=== PATIENT | male | born 1980 | race Caucasian/White ===

== ENCOUNTER 2024-07-15 06:23 | Inpatient (IN) | payer BC ==
[2024-07-15] MEDS ORDERED: Dexamethasone 4 mg/ml Vial ONE (06:56)
[2024-07-15] MEDS ORDERED: PROPOFOL 40 ML ONE (06:56)
[2024-07-15] MEDS ORDERED: Lidocaine 1% PF 5 ML VIAL ONE (06:56)
[2024-07-15] MEDS ORDERED: Ondansetron PF 4 MG/2 ML Vial ONE (06:56)
[2024-07-15] MEDS ORDERED: fentaNYL PF 100 MCG/2 ML SYRINGE ONE (06:56)
[2024-07-15] MEDS ORDERED: Rocuronium Bromide 10 MG/ML (10ML VIAL) ONE (06:59)
[2024-07-15] MEDS ORDERED: Sodium Chloride 0.9% 100 ML ONE ×2 (07:09→16:36)
[2024-07-15] MEDS ORDERED: CEFAZOLIN 2 GM VIAL ONE ×2 (07:09→16:36)
[2024-07-15] MEDS ORDERED: Scopolamine 1 mg/72 hour Patch ONE (07:18)
[2024-07-15] MEDS ORDERED: Midazolam HCl 2 mg/2 ml Vial ONE ×2 (07:18→13:35)
[2024-07-15] MEDS ORDERED: Famotidine/PF 20 mg/2ml Vial ONE ×2 (07:27→09:04)
[2024-07-15] MEDS ORDERED: Metoclopramide HCl 10 MG (2 mL) VIAL ONE (07:43)
[2024-07-15] MEDS ORDERED: HYDROmorphone 2 MG/ML VIAL ONE (08:08)
[2024-07-15] MEDS ORDERED: Dexmedetomidine 200 MCG/2 ML VIAL ONE (08:20)
[2024-07-15] MEDS ORDERED: SUGAMMADEX SODIUM 200 MG/2 ML VIAL ONE (08:58)
[2024-07-15] MEDS ORDERED: PHENYLEPHRINE-NS 100 MCG/ML 10 ML SYRINGE ONE (09:05)
[2024-07-15] MEDS ORDERED: Ondansetron PF 4 MG/2 ML Vial SLOW IVP PRN (10:04)
[2024-07-15] MEDS ORDERED: Communication Order-Pharmacy FS SCH (10:15)
[2024-07-15] MEDS ORDERED: Fentanyl 250 MCG/5 ML VIAL ONE (10:19)
[2024-07-15] MEDS ORDERED: HYDROmorphone 0.5 MG/0.5 ML SYRINGE ONE ×4 (11:24→15:11)
[2024-07-15] MEDS ORDERED: Iopamidol-370 76% 500 ML MDV (1 ML CHARGE) ONE (14:21)
[2024-07-15 14:48] LABS: #Basophils 0.06 10x3/uL (0.0-0.2); #Eosinphils Less than 0.03 10x3/uL (0.0-0.7); %Basophils 0.4 % (0.0-1.0); %Eosinophils 0.1 % (0.0-10.0); %Lymphocytes 5.5 % (21.0-51.0); %Monocytes 6.7 % (0.0-10.0); %Neutrophils 86.9 % (42.0-75.0); Hematocrit 35.6 % (42.0-52.0); Hemoglobin 11.5 g/dL (14.0-18.0); Mean Corpuscular HGB CONC 32.3 g/dL (32.0-36.0); Mean Corpuscular Hemoglobin 29.6 pg (27.0-31.0); Mean Corpuscular Volume 91.5 fL (78.0-98.0); Mean Platelet Volume 10.5 fL (7.4-10.4); Platelet Count 426 10x3/uL (130-400); RBC Distribution Width 12.9 % (11.5-14.5); Red Blood Cell (RBC) Count 3.89 mill/uL (4.70-6.10)
[2024-07-15 15:05] LABS: ALT (SGPT) 63 U/L (8-55); AST (SGOT) 49 U/L (5-34); Albumin 3.6 g/dL (3.5-5.0); Alkaline Phosphatase 183 U/L (40-110); Anion Gap 16 mmol/L (10-20); BUN (Urea Nitrogen) 15 mg/dL (8.9-20.6); Bilirubin, Total 0.4 mg/dL (0.2-1.2); Calc. Creatinine Clearance 162 mL/min (70-130); Calcium 9.7 mg/dL (7.8-10.44); Carbon Dioxide 23 mmol/L (22-29); Chloride 105 mmol/L (98-107); Estimated GFR 110; Globulin 3.3 g/dL (2.4-3.5); Glucose 133 mg/dL (70-105); Potassium 5.4 mmol/L (3.5-5.1); Protein, Total 6.9 g/dL (6.0-8.3); Sodium 139 mmol/L (136-145)
[2024-07-15 15:11] LABS: Troponin I 0.013 ng/mL (< 0.028)
[2024-07-15] MEDS ORDERED: Dextrose 50% Abboject 50 ML SYRINGE SLOW IVP PRN (15:30)
[2024-07-15] MEDS ORDERED: HumuLIN 70/30 100 Unit/ml 10 ml Vial SC SCH (15:45)
[2024-07-15] MEDS ORDERED: Dextrose 50% Abboject 50 ML SYRINGE ONE (16:03)
[2024-07-15] MEDS ORDERED: Insulin Regular, Human 100 UNIT/ML 10 ML VIAL ONE (16:19)
[2024-07-15] MEDS ORDERED: HYDROcodone/Acetaminophen 10/325 mg Tablet ONE (16:56)
[2024-07-15] MEDS: CEFAZOLIN 2 GM in Sodium Chloride 0.9% 100 ML IVPB SCH (18:21)
[2024-07-15] MEDS: Sodium Chloride 0.9% 1,000 ML IV SCH ×2 (18:21→18:27)
[2024-07-15] MEDS: Thiamine 100 MG TAB PO SCH (18:21)
[2024-07-15] MEDS: Folic Acid 1 MG TAB PO SCH (18:21)
[2024-07-15] MEDS: Multivit, Therapeutic 1 TAB PO SCH (18:21)
[2024-07-15] MEDS: Sodium Polystyrene Sulfonate 15 GM (60 mL) BOT PO SCH (18:22)
[2024-07-15] MEDS: Insulin Regular, Human 100 UNIT/ML 10 ML VIAL SC SCH (18:22)
[2024-07-15 19:41] LABS: Troponin I 0.013 ng/mL (< 0.028)
[2024-07-15] MEDS: HYDROcodone/Acetaminophen 10/325 mg Tablet PO PRN (20:57)
[2024-07-15] MEDS: Metoprolol Tartrate 25 MG TAB PO SCH (20:57)
[2024-07-15] MEDS: traZODone HCl 50 MG TAB PO SCH (20:57)
[2024-07-15] MEDS ORDERED: Aspirin 325 MG TAB PO SCH (21:00)
[2024-07-16 06:23] LABS: #Basophils 0.06 10x3/uL (0.0-0.2); %Basophils 0.6 % (0.0-1.0); %Eosinophils 0.7 % (0.0-10.0); %Lymphocytes 20.6 % (21.0-51.0); %Monocytes 13.6 % (0.0-10.0); %Neutrophils 64.2 % (42.0-75.0); Hematocrit 31.2 % (42.0-52.0); Hemoglobin 9.9 g/dL (14.0-18.0); Mean Corpuscular HGB CONC 31.7 g/dL (32.0-36.0); Mean Corpuscular Hemoglobin 29.5 pg (27.0-31.0); Mean Corpuscular Volume 92.9 fL (78.0-98.0); Mean Platelet Volume 10.6 fL (7.4-10.4); Platelet Count 328 10x3/uL (130-400); RBC Distribution Width 13.1 % (11.5-14.5); Red Blood Cell (RBC) Count 3.36 mill/uL (4.70-6.10)
[2024-07-16 06:35] LABS: Amphetamine Not Detected (NotDetected); Barbiturates Screen Not Detected (NotDetected); Benzodiazepine Screen Not Detected (NotDetected); Cocaine Metabolite Screen Not Detected (NotDetected); Methadone Not Detected (NotDetected); Methamphetamine Not Detected (NotDetected); Opiate Screen Detected (NotDetected); Oxycodone Screen Not Detected (NotDetected); Phencyclidine (PCP) Not Detected (NotDetected); THC/Cannabinoid Screen Not Detected (NotDetected); Tricyclic Screen Not Detected (NotDetected)
[2024-07-16 07:42] LABS: Triglycerides 180 mg/dL (Less than 150)
[2024-07-16 07:46] LABS: Cholesterol 166 mg/dl (< 200 Desired)
[2024-07-16 07:47] LABS: Cardiac Risk 4.6 (Less than 4.5); HDL Cholesterol 36 mg/dL (>60 Neg Risk); LDL Cholesterol, Calculated 94 mg/dL
[2024-07-16 08:00] LABS: Anion Gap 14 mmol/L (10-20); BUN (Urea Nitrogen) 11 mg/dL (8.9-20.6); Calc. Creatinine Clearance 187 mL/min (70-130); Carbon Dioxide 24 mmol/L (22-29); Chloride 104 mmol/L (98-107); Estimated GFR 116; Glucose 128 mg/dL (70-105); Potassium 3.9 mmol/L (3.5-5.1); Sodium 138 mmol/L (136-145)
[2024-07-16] MEDS ORDERED: traMADol HCl 50 MG TAB PO PRN (10:11)
[2024-07-16] MEDS: Thiamine 100 MG TAB PO SCH (10:16)
[2024-07-16] MEDS: Folic Acid 1 MG TAB PO SCH (10:16)
[2024-07-16] MEDS: Multivitamin W/ Minerals 1 TAB PO SCH (10:16)
[2024-07-16] MEDS: Enoxaparin 40 MG (0.4 mL) SYRINGE SC SCH (10:17)
[2024-07-16] MEDS ORDERED: Bupivacaine HCl 0.5%/Epinephrine 1:200,000/PF 30 ml Vial ONE (11:02)
[2024-07-16] MEDS: Acetaminophen 325 MG TAB PO SCH (12:29)
[2024-07-16] MEDS: Ketorolac Tromethamine 30 MG (1 mL) VIAL IVP SCH (12:30)
[2024-07-16] MEDS: tiZANidine HCl 4 MG TAB PO SCH (20:25)
[2024-07-16] MEDS: Lactated Ringer's 500 ML IV SCH (21:58)
[2024-07-16 22:12] LABS: Lactic Acid 0.87 mmol/L (0.5-2.2)
[2024-07-16 22:31] LABS: Hematocrit 22.6 % (42.0-52.0); Hemoglobin 7.1 g/dL (14.0-18.0); Mean Corpuscular HGB CONC 31.4 g/dL (32.0-36.0); Mean Corpuscular Hemoglobin 29.7 pg (27.0-31.0); Mean Corpuscular Volume 94.6 fL (78.0-98.0); Mean Platelet Volume 10.6 fL (7.4-10.4); Platelet Count 255 10x3/uL (130-400); RBC Distribution Width 13.1 % (11.5-14.5); Red Blood Cell (RBC) Count 2.39 mill/uL (4.70-6.10)
[2024-07-17 07:52] LABS: Hematocrit 24.5 % (42.0-52.0); Hemoglobin 7.9 g/dL (14.0-18.0); Mean Corpuscular HGB CONC 32.2 g/dL (32.0-36.0); Mean Corpuscular Hemoglobin 29.9 pg (27.0-31.0); Mean Corpuscular Volume 92.8 fL (78.0-98.0); Mean Platelet Volume 10.7 fL (7.4-10.4); Platelet Count 251 10x3/uL (130-400); RBC Distribution Width 13.1 % (11.5-14.5); Red Blood Cell (RBC) Count 2.64 mill/uL (4.70-6.10)
[2024-07-17] MEDS: HYDROcodone/Acetaminophen 10/325 mg Tablet PO PRN (08:53)
[2024-07-17] MEDS: traMADol HCl 50 MG TAB PO SCH (13:27)
[2024-07-18 10:31] LABS: #Basophils 0.05 10x3/uL (0.0-0.2); %Basophils 0.6 % (0.0-1.0); %Eosinophils 5.6 % (0.0-10.0); %Lymphocytes 24.8 % (21.0-51.0); %Monocytes 9.3 % (0.0-10.0); %Neutrophils 59.2 % (42.0-75.0); Hematocrit 26.4 % (42.0-52.0); Hemoglobin 8.5 g/dL (14.0-18.0); Mean Corpuscular HGB CONC 32.2 g/dL (32.0-36.0); Mean Corpuscular Hemoglobin 29.5 pg (27.0-31.0); Mean Corpuscular Volume 91.7 fL (78.0-98.0); Mean Platelet Volume 10.6 fL (7.4-10.4); Platelet Count 266 10x3/uL (130-400); RBC Distribution Width 13.5 % (11.5-14.5); Red Blood Cell (RBC) Count 2.88 mill/uL (4.70-6.10)
[2024-07-18] MEDS: CEFAZOLIN 2 GM VIAL ONE (15:35)
[2024-07-19 08:17] LABS: #Basophils 0.05 10x3/uL (0.0-0.2); %Basophils 0.6 % (0.0-1.0); %Eosinophils 5.1 % (0.0-10.0); %Lymphocytes 24.5 % (21.0-51.0); %Monocytes 8.4 % (0.0-10.0); %Neutrophils 60.9 % (42.0-75.0); Hematocrit 29.2 % (42.0-52.0); Hemoglobin 9.4 g/dL (14.0-18.0); Mean Corpuscular HGB CONC 32.2 g/dL (32.0-36.0); Mean Corpuscular Hemoglobin 29.6 pg (27.0-31.0); Mean Corpuscular Volume 91.8 fL (78.0-98.0); Mean Platelet Volume 10.6 fL (7.4-10.4); Platelet Count 323 10x3/uL (130-400); RBC Distribution Width 13.1 % (11.5-14.5); Red Blood Cell (RBC) Count 3.18 mill/uL (4.70-6.10)
[2024-07-22 06:27] VITALS: BMI 30.2
[2024-07-22 13:51] VITALS: BP 91/59; TEMP 97.7
[2024-07-22 16:42] VITALS: BMI 30.2
== END 2024-07-22 21:07 | DRG 481 ==
LOC: SDC 06:23 → IMCU/EMU 14:42 → SURG B 07-17 19:18
PROVIDERS: ADMIT Orthopaedic Surgery; ATTEND Orthopaedic Surgery
PROC: 0QSG06Z Reposition Right Tibia with Intramedullary Internal Fixation Device, Open Approach (ICD-10-PCS; principal; 2024-07-15)
PROC: 0QU807Z Supplement Right Femoral Shaft with Autologous Tissue Substitute, Open Approach (ICD-10-PCS; 2024-07-15)
PROC: 0QBG0ZZ Excision of Right Tibia, Open Approach (ICD-10-PCS; 2024-07-15)
PROC: 3E033XZ Introduction of Vasopressor into Peripheral Vein, Percutaneous Approach (ICD-10-PCS; 2024-07-15)
PROC: 30233N1 Transfusion of Nonautologous Red Blood Cells into Peripheral Vein, Percutaneous Approach (ICD-10-PCS; 2024-07-17)
DX: S72.91XD Unspecified fracture of right femur, subsequent encounter for closed fracture with routine healing (principal); M96.671 Fracture of tibia or fibula following insertion of orthopedic implant, joint prosthesis, or bone plate, right leg; E87.5 Hyperkalemia; G47.33 Obstructive sleep apnea (adult) (pediatric); R74.01 Elevation of levels of liver transaminase levels; F17.200 Nicotine dependence, unspecified, uncomplicated; F10.10 Alcohol abuse, uncomplicated; D64.9 Anemia, unspecified; Z79.899 Other long term (current) drug therapy; Z88.8 Allergy status to other drugs, medicaments and biological substances; Z88.5 Allergy status to narcotic agent; Z90.49 Acquired absence of other specified parts of digestive tract; I95.9 Hypotension, unspecified
CPT/HCPCS: 36415; 36416; 36430; 71045; 71275; 80048; 80053; 80061; 80306; 83605; 83880; 84484; 85025; 85027; 86850; 86900; 86901; 93005; 93010; 93306; C1713; C1889; J1100; J1170; J1650; J1815; J1885; J2250; J2405; J2704; J2765; J3010; J3490; J7030; J7120; J7999; P9016; Q9967

== ENCOUNTER 2024-10-20 08:09 | Outpatient (CLI) | payer BC | END 2024-10-20 08:10 | disposition home or self-care (01) | LOC: BICRAD 08:09 | PROVIDERS: ATTEND Orthopaedic Surgery | DX: S42.022D Displaced fracture of shaft of left clavicle, subsequent encounter for fracture with routine healing (principal); S72.361D Displaced segmental fracture of shaft of right femur, subsequent encounter for closed fracture with routine healing; S72.492B Other fracture of lower end of left femur, initial encounter for open fracture type I or II; S72.452A Displaced supracondylar fracture without intracondylar extension of lower end of left femur, initial encounter for closed fracture; Z98.890 Other specified postprocedural states ==

== ENCOUNTER 2025-06-28 10:12 | Outpatient (CLI) | payer BC | END 2025-06-28 10:13 | disposition home or self-care (01) | LOC: BICRAD 10:12 | PROVIDERS: ATTEND Orthopaedic Surgery | DX: S72.492B Other fracture of lower end of left femur, initial encounter for open fracture type I or II (principal); S79.101D Unspecified physeal fracture of lower end of right femur, subsequent encounter for fracture with routine healing ==

== ENCOUNTER 2025-08-23 10:10 | Inpatient (IN) | payer BC ==
[2025-08-23] MEDS ORDERED: Iopamidol 370 76% 100 ML VIAL ONE (11:03)
[2025-08-23] MEDS ORDERED: Rocuronium Bromide 10 MG/ML (10ML VIAL) ONE (11:51)
[2025-08-23] MEDS ORDERED: fentaNYL PF 100 MCG/2 ML SYRINGE ONE (11:51)
[2025-08-23] MEDS ORDERED: Lidocaine 1% PF 5 ML VIAL ONE (11:51)
[2025-08-23] MEDS ORDERED: CEFAZOLIN 2 GM VIAL ONE (12:29)
[2025-08-23] MEDS ORDERED: Acetaminophen 325 MG TAB PO PRN (12:30)
[2025-08-23] MEDS ORDERED: PROPOFOL 200 MG/20 ML VIAL ONE (12:40)
[2025-08-23] MEDS ORDERED: Ondansetron PF 4 MG/2 ML Vial ONE (13:10)
[2025-08-23] MEDS ORDERED: HYDROmorphone 2 MG/ML VIAL ONE (13:51)
[2025-08-23 15:07] LABS: Hematocrit 47.4 % (42.0-52.0); Hemoglobin 15.8 g/dL (14.0-18.0)
[2025-08-23] MEDS ORDERED: SUGAMMADEX SODIUM 200 MG/2 ML VIAL ONE (15:18)
[2025-08-23] MEDS ORDERED: Bupivacaine 0.25% HCL 30 ML VIAL ONE ×3 (15:34→15:39)
[2025-08-23] MEDS ORDERED: HYDROmorphone 0.5 MG/0.5 ML SYRINGE ONE (16:43)
[2025-08-23 17:50] LABS: RBC Count-Automated (BF) 9673 /cu.mm
[2025-08-23 18:51] LABS: WBC/Nucleated-Auto (BF) Greater than 51000 /cu.mm
[2025-08-23 19:20] LABS: BF Segmented Neutrophils 92 %; Cell Count Non Hematic 2 %
[2025-08-23] MEDS: HYDROcodone/Acetaminophen 10/325 mg Tablet PO PRN (21:14)
[2025-08-23] MEDS: Nitroglycerin 0.4 MG TAB (25 Tab Bottle) ONE (22:10)
[2025-08-23] MEDS ORDERED: Nitroglycerin 0.4 MG TAB (25 Tab Bottle) SL PRN (22:12)
[2025-08-23 22:13] LABS: #Basophils 0.04 10x3/uL (0.0-0.2); #Eosinophils Less than 0.03 10x3/uL (0.0-0.7); #Monocytes 1.19 10x3/uL (0.11-0.59); #Neutrophils 20.31 10x3/uL (1.40-6.50); %Basophils 0.2 % (0.0-1.0); %Eosinophils 0.0 % (0.0-10.0); %Lymphocytes 3.0 % (21.0-51.0); %Monocytes 5.3 % (0.0-10.0); %Neutrophils 90.9 % (42.0-75.0); Hematocrit 48.3 % (42.0-52.0); Hemoglobin 16.1 g/dL (14.0-18.0); Mean Corpuscular Hemoglobin 29.8 pg (27.0-31.0); Mean Corpuscular Volume 89.3 fL (78.0-98.0); Platelet Count 305 10x3/uL (130-400); Red Blood Cell (RBC) Count 5.41 mill/uL (4.70-6.10); White Blood Cell (WBC) Count 22.35 10x3/uL (4.8-10.8)
[2025-08-23] MEDS ORDERED: Heparin 10,000 UNITS/ 10 ML VIAL SLOW IVP SCH (22:15)
[2025-08-23] MEDS: Metoprolol Tartrate 5 MG (5 mL) VIAL ONE (22:18)
[2025-08-23] MEDS: Heparin 10,000 UNITS/ 10 ML VIAL SLOW IVP SCH (22:25)
[2025-08-23 22:31] LABS: Anion Gap 15 mmol/L (10-20); BUN (Urea Nitrogen) 14 mg/dL (8.9-20.6); Calc. Creatinine Clearance 107 mL/min (70-130); Calcium 8.6 mg/dL (7.8-10.44); Chloride 103 mmol/L (98-107); Glucose 182 mg/dL (70-105); Potassium 5.0 mmol/L (3.5-5.1); Sodium 137 mmol/L (136-145)
[2025-08-23] MEDS ORDERED: Heparin 10,000 UNITS/ 10 ML VIAL ONE (22:39)
[2025-08-23] MEDS ORDERED: Nitroglycerin 50 MG/250 ML BOT 250 ML ONE (22:39)
[2025-08-23] MEDS ORDERED: EPINEPHrine 1 MG/10 ML Abboject SYRINGE ONE (22:39)
[2025-08-23] MEDS ORDERED: Lidocaine 1% (PF) 30 ML VIAL ONE (22:39)
[2025-08-23] MEDS ORDERED: PHENYLEPHRINE-NS 100 MCG/ML 10 ML SYRINGE ONE (22:39)
[2025-08-23 22:40] LABS: Carbon Dioxide 24 mmol/L (22-29)
[2025-08-23 22:43] LABS: INR-International Normal Ratio 1.0; Prothrombin Time 13.2 sec (12.0-14.7)
[2025-08-23 22:44] LABS: PTT 26.2 sec (22.9-36.1)
[2025-08-23] MEDS: Aspirin 81 mg Enteric Coated Tablet ONE (22:56)
[2025-08-23 23:38] LABS: Magnesium 1.8 mg/dL (1.6-2.6)
[2025-08-24] MEDS ORDERED: Metoprolol Tartrate 5 MG (5 mL) VIAL ONE (00:17)
[2025-08-24] MEDS: Mag-Al 1200 mg/1200 mg/30 ML UDCUP PO PRN (02:20)
[2025-08-24] MEDS: Ondansetron PF 4 MG/2 ML Vial SLOW IVP PRN (02:20)
[2025-08-24 04:43] LABS: #Basophils 0.04 10x3/uL (0.0-0.2); #Eosinophils Less than 0.03 10x3/uL (0.0-0.7); #Monocytes 1.76 10x3/uL (0.11-0.59); #Neutrophils 15.75 10x3/uL (1.40-6.50); %Basophils 0.2 % (0.0-1.0); %Eosinophils 0.0 % (0.0-10.0); %Lymphocytes 6.4 % (21.0-51.0); %Monocytes 9.3 % (0.0-10.0); %Neutrophils 83.6 % (42.0-75.0); Hematocrit 44.4 % (42.0-52.0); Hemoglobin 14.6 g/dL (14.0-18.0); Mean Corpuscular Hemoglobin 29.3 pg (27.0-31.0); Mean Corpuscular Volume 89.0 fL (78.0-98.0); Platelet Count 296 10x3/uL (130-400); Red Blood Cell (RBC) Count 4.99 mill/uL (4.70-6.10); White Blood Cell (WBC) Count 18.85 10x3/uL (4.8-10.8)
[2025-08-24 05:00] LABS: Anion Gap 16 mmol/L (10-20); BUN (Urea Nitrogen) 12 mg/dL (8.9-20.6); Calc. Creatinine Clearance 148 mL/min (70-130); Calcium 8.3 mg/dL (7.8-10.44); Carbon Dioxide 22 mmol/L (22-29); Cardiac Risk 5.0 (Less than 4.5); Chloride 104 mmol/L (98-107); Cholesterol 165 mg/dl (< 200 Desired); Glucose 146 mg/dL (70-105); HDL Cholesterol 33 mg/dL (>60 Neg Risk); LDL Cholesterol, Calculated 92 mg/dL; Potassium 4.6 mmol/L (3.5-5.1); Sodium 137 mmol/L (136-145); Triglycerides 202 mg/dL (Less than 150)
[2025-08-24] MEDS: Aspirin 81 mg Enteric Coated Tablet PO SCH (08:44)
[2025-08-24] MEDS: Pantoprazole 40 MG VIAL IVP SCH (10:12)
[2025-08-24] MEDS: Lisinopril 2.5 MG TAB PO SCH (10:19)
[2025-08-24] MEDS: Adenosine 6 mg (2 mL) VIAL IVP SCH ×2 (11:29→11:31)
[2025-08-24] MEDS: Amiodarone 150 MG, Admixture Fee 1 EACH in Dextrose 5% in Water 100 ML IVPB SCH (12:11)
[2025-08-24] MEDS: Enoxaparin 100 MG (1 mL) SYRINGE SC SCH (13:54)
[2025-08-25 04:11] LABS: ALT (SGPT) 37 U/L (Less than 45); AST (SGOT) 110 U/L (11-34); Albumin 3.3 g/dL (3.1-4.5); Alkaline Phosphatase 56 U/L (40-110); Anion Gap 14 mmol/L (10-20); BUN (Urea Nitrogen) 15 mg/dL (8.9-20.6); Bilirubin, Total 0.7 mg/dL (0.3-1.2); Calc. Creatinine Clearance 128 mL/min (70-130); Calcium 8.1 mg/dL (7.8-10.44); Carbon Dioxide 27 mmol/L (22-29); Cardiac Risk 4.2 (Less than 4.5); Chloride 101 mmol/L (98-107); Cholesterol 142 mg/dl (< 200 Desired); Globulin 2.4 g/dL (2.4-3.5); Glucose 128 mg/dL (70-105); HDL Cholesterol 34 mg/dL (>60 Neg Risk); LDL Cholesterol, Calculated 66 mg/dL; Potassium 4.7 mmol/L (3.5-5.1); Sodium 137 mmol/L (136-145); Triglycerides 211 mg/dL (Less than 150)
[2025-08-25 06:15] LABS: #Basophils 0.05 10x3/uL (0.0-0.2); #Eosinophils Less than 0.03 10x3/uL (0.0-0.7); #Monocytes 2.48 10x3/uL (0.11-0.59); #Neutrophils 15.30 10x3/uL (1.40-6.50); %Basophils 0.2 % (0.0-1.0); %Eosinophils 0.0 % (0.0-10.0); %Lymphocytes 10.2 % (21.0-51.0); %Monocytes 12.4 % (0.0-10.0); %Neutrophils 76.5 % (42.0-75.0); Hematocrit 32.7 % (42.0-52.0); Hemoglobin 10.5 g/dL (14.0-18.0); Mean Corpuscular Hemoglobin 29.1 pg (27.0-31.0); Mean Corpuscular Volume 90.6 fL (78.0-98.0); Platelet Count 232 10x3/uL (130-400); Red Blood Cell (RBC) Count 3.61 mill/uL (4.70-6.10); White Blood Cell (WBC) Count 20.03 10x3/uL (4.8-10.8)
[2025-08-25] MEDS: Aspirin 81 mg Enteric Coated Tablet PO SCH (08:14)
[2025-08-25] MEDS ORDERED: Ondansetron PF 4 MG/2 ML Vial IVP PRN (10:45)
[2025-08-25] MEDS ORDERED: diphenhydrAMINE 50 MG/ML VIAL IM/IV PRN (10:45)
[2025-08-25] MEDS: Dapagliflozin Propanediol 10 MG TAB PO SCH (11:09)
[2025-08-25] MEDS: HYDROmorphone HCl/0.9% NaCl/PF 30 ML IV SCH (11:09)
[2025-08-25] MEDS: Ketorolac Tromethamine 30 MG (1 mL) VIAL IVP SCH (11:09)
[2025-08-25] MEDS: Acetaminophen 500 MG TAB PO SCH (11:09)
[2025-08-25 12:50] LABS: #Basophils 0.06 10x3/uL (0.0-0.2); #Eosinophils Less than 0.03 10x3/uL (0.0-0.7); #Monocytes 2.48 10x3/uL (0.11-0.59); #Neutrophils 15.88 10x3/uL (1.40-6.50); %Basophils 0.3 % (0.0-1.0); %Eosinophils 0.0 % (0.0-10.0); %Lymphocytes 9.1 % (21.0-51.0); %Monocytes 12.1 % (0.0-10.0); %Neutrophils 77.7 % (42.0-75.0); Hematocrit 30.0 % (42.0-52.0); Hemoglobin 9.8 g/dL (14.0-18.0); Mean Corpuscular Hemoglobin 29.7 pg (27.0-31.0); Mean Corpuscular Volume 90.9 fL (78.0-98.0); Platelet Count 241 10x3/uL (130-400); Red Blood Cell (RBC) Count 3.30 mill/uL (4.70-6.10); White Blood Cell (WBC) Count 20.45 10x3/uL (4.8-10.8)
[2025-08-25 19:56] LABS: #Basophils 0.06 10x3/uL (0.0-0.2); #Eosinophils Less than 0.03 10x3/uL (0.0-0.7); #Monocytes 2.20 10x3/uL (0.11-0.59); #Neutrophils 16.59 10x3/uL (1.40-6.50); %Basophils 0.3 % (0.0-1.0); %Eosinophils 0.0 % (0.0-10.0); %Lymphocytes 9.4 % (21.0-51.0); %Monocytes 10.5 % (0.0-10.0); %Neutrophils 78.8 % (42.0-75.0); Hematocrit 29.2 % (42.0-52.0); Hemoglobin 9.5 g/dL (14.0-18.0); Mean Corpuscular Hemoglobin 29.5 pg (27.0-31.0); Mean Corpuscular Volume 90.7 fL (78.0-98.0); Platelet Count 229 10x3/uL (130-400); Red Blood Cell (RBC) Count 3.22 mill/uL (4.70-6.10); White Blood Cell (WBC) Count 21.04 10x3/uL (4.8-10.8)
[2025-08-25] MEDS: Pantoprazole 40 MG DR.TAB PO SCH (20:10)
[2025-08-26 03:27] LABS: #Basophils 0.05 10x3/uL (0.0-0.2); #Eosinophils Less than 0.03 10x3/uL (0.0-0.7); #Monocytes 1.75 10x3/uL (0.11-0.59); #Neutrophils 14.49 10x3/uL (1.40-6.50); %Basophils 0.3 % (0.0-1.0); %Eosinophils 0.1 % (0.0-10.0); %Lymphocytes 10.2 % (21.0-51.0); %Monocytes 9.6 % (0.0-10.0); %Neutrophils 79.0 % (42.0-75.0); Hematocrit 29.3 % (42.0-52.0); Hemoglobin 9.4 g/dL (14.0-18.0); Mean Corpuscular Hemoglobin 29.1 pg (27.0-31.0); Mean Corpuscular Volume 90.7 fL (78.0-98.0); Platelet Count 188 10x3/uL (130-400); Red Blood Cell (RBC) Count 3.23 mill/uL (4.70-6.10); White Blood Cell (WBC) Count 18.31 10x3/uL (4.8-10.8)
[2025-08-26 03:52] LABS: Anion Gap 10 mmol/L (10-20); BUN (Urea Nitrogen) 17 mg/dL (8.9-20.6); Calc. Creatinine Clearance 152 mL/min (70-130); Calcium 7.9 mg/dL (7.8-10.44); Carbon Dioxide 29 mmol/L (22-29); Chloride 101 mmol/L (98-107); Glucose 117 mg/dL (70-105); Potassium 4.6 mmol/L (3.5-5.1); Sodium 135 mmol/L (136-145)
[2025-08-26] MEDS: Dapagliflozin Propanediol 10 MG TAB PO SCH (07:43)
[2025-08-26] MEDS ORDERED: Enoxaparin 40 MG (0.4 mL) SYRINGE SC SCH (09:00)
[2025-08-26] MEDS ORDERED: Iopamidol 370 76% 100 ML VIAL ONE (13:53)
[2025-08-26 16:02] LABS: Hemoglobin 9.4 g/dL (14.0-18.0)
[2025-08-26 16:22] LABS: INR-International Normal Ratio 1.1; PTT 34.9 sec (22.9-36.1); Prothrombin Time 14.3 sec (12.0-14.7)
[2025-08-27 04:15] LABS: #Basophils 0.05 10x3/uL (0.0-0.2); #Eosinophils 0.12 10x3/uL (0.0-0.7); #Monocytes 1.47 10x3/uL (0.11-0.59); #Neutrophils 11.86 10x3/uL (1.40-6.50); %Basophils 0.3 % (0.0-1.0); %Eosinophils 0.8 % (0.0-10.0); %Lymphocytes 11.4 % (21.0-51.0); %Monocytes 9.6 % (0.0-10.0); %Neutrophils 77.2 % (42.0-75.0); Hematocrit 26.1 % (42.0-52.0); Hemoglobin 8.5 g/dL (14.0-18.0); Mean Corpuscular Hemoglobin 29.6 pg (27.0-31.0); Mean Corpuscular Volume 90.9 fL (78.0-98.0); Platelet Count 192 10x3/uL (130-400); Red Blood Cell (RBC) Count 2.87 mill/uL (4.70-6.10); White Blood Cell (WBC) Count 15.36 10x3/uL (4.8-10.8)
[2025-08-27 04:31] LABS: Anion Gap 10 mmol/L (10-20); BUN (Urea Nitrogen) 15 mg/dL (8.9-20.6); Calc. Creatinine Clearance 156 mL/min (70-130); Calcium 7.9 mg/dL (7.8-10.44); Carbon Dioxide 28 mmol/L (22-29); Chloride 103 mmol/L (98-107); Glucose 106 mg/dL (70-105); Potassium 4.6 mmol/L (3.5-5.1); Sodium 136 mmol/L (136-145)
[2025-08-27] MEDS: HYDROcodone/Acetaminophen 5/325 mg Tablet PO PRN (15:06)
[2025-08-27] MEDS: HYDROcodone/Acetaminophen 10/325 mg Tablet PO PRN (19:15)
[2025-08-28] MEDS: diphenhydrAMINE 25 MG CAP PO PRN (00:11)
[2025-08-28 05:58] LABS: #Basophils 0.07 10x3/uL (0.0-0.2); #Eosinophils 0.23 10x3/uL (0.0-0.7); #Monocytes 1.94 10x3/uL (0.11-0.59); #Neutrophils 12.66 10x3/uL (1.40-6.50); %Basophils 0.4 % (0.0-1.0); %Eosinophils 1.3 % (0.0-10.0); %Lymphocytes 11.8 % (21.0-51.0); %Monocytes 11.2 % (0.0-10.0); %Neutrophils 73.4 % (42.0-75.0); Hematocrit 29.9 % (42.0-52.0); Hemoglobin 9.9 g/dL (14.0-18.0); Mean Corpuscular Hemoglobin 29.6 pg (27.0-31.0); Mean Corpuscular Volume 89.5 fL (78.0-98.0); Platelet Count 280 10x3/uL (130-400); Red Blood Cell (RBC) Count 3.34 mill/uL (4.70-6.10); White Blood Cell (WBC) Count 17.26 10x3/uL (4.8-10.8)
[2025-08-28] MEDS: HYDROcodone/Acetaminophen 10/325 mg Tablet PO PRN (16:42)
[2025-08-29 04:03] LABS: #Basophils 0.13 10x3/uL (0.0-0.2); #Eosinophils 0.40 10x3/uL (0.0-0.7); #Monocytes 2.16 10x3/uL (0.11-0.59); #Neutrophils 14.42 10x3/uL (1.40-6.50); %Basophils 0.6 % (0.0-1.0); %Eosinophils 2.0 % (0.0-10.0); %Lymphocytes 11.6 % (21.0-51.0); %Monocytes 10.8 % (0.0-10.0); %Neutrophils 72.0 % (42.0-75.0); Hematocrit 33.9 % (42.0-52.0); Hemoglobin 10.8 g/dL (14.0-18.0); Mean Corpuscular Hemoglobin 29.0 pg (27.0-31.0); Mean Corpuscular Volume 91.1 fL (78.0-98.0); Platelet Count 346 10x3/uL (130-400); Red Blood Cell (RBC) Count 3.72 mill/uL (4.70-6.10); White Blood Cell (WBC) Count 20.05 10x3/uL (4.8-10.8)
[2025-08-30 04:18] LABS: #Basophils 0.13 10x3/uL (0.0-0.2); #Eosinophils 0.59 10x3/uL (0.0-0.7); #Monocytes 1.78 10x3/uL (0.11-0.59); #Neutrophils 12.47 10x3/uL (1.40-6.50); %Basophils 0.7 % (0.0-1.0); %Eosinophils 3.3 % (0.0-10.0); %Lymphocytes 13.1 % (21.0-51.0); %Monocytes 10.0 % (0.0-10.0); %Neutrophils 70.0 % (42.0-75.0); Hematocrit 30.6 % (42.0-52.0); Hemoglobin 9.9 g/dL (14.0-18.0); Mean Corpuscular Hemoglobin 29.1 pg (27.0-31.0); Mean Corpuscular Volume 90.0 fL (78.0-98.0); Platelet Count 368 10x3/uL (130-400); Red Blood Cell (RBC) Count 3.40 mill/uL (4.70-6.10); White Blood Cell (WBC) Count 17.81 10x3/uL (4.8-10.8)
[2025-08-30 05:48] VITALS: BMI 32.7
[2025-08-30 15:08] VITALS: BMI 32.7
[2025-08-31 06:09] LABS: #Basophils 0.12 10x3/uL (0.0-0.2); #Eosinophils 0.65 10x3/uL (0.0-0.7); #Monocytes 1.37 10x3/uL (0.11-0.59); #Neutrophils 11.52 10x3/uL (1.40-6.50); %Basophils 0.7 % (0.0-1.0); %Eosinophils 3.9 % (0.0-10.0); %Lymphocytes 13.6 % (21.0-51.0); %Monocytes 8.2 % (0.0-10.0); %Neutrophils 69.3 % (42.0-75.0); Hematocrit 32.2 % (42.0-52.0); Hemoglobin 10.0 g/dL (14.0-18.0); Mean Corpuscular Hemoglobin 28.5 pg (27.0-31.0); Mean Corpuscular Volume 91.7 fL (78.0-98.0); Platelet Count 447 10x3/uL (130-400); Red Blood Cell (RBC) Count 3.51 mill/uL (4.70-6.10); White Blood Cell (WBC) Count 16.63 10x3/uL (4.8-10.8)
[2025-08-31 11:29] VITALS: BP 108/56; TEMP 97.2
== END 2025-08-31 11:30 | disposition home or self-care (01) | DRG 498 ==
LOC: SURG A 10:10 → EDSTATUS 16:43 → SURG A 17:57 → CCU 23:51 → 2NO 08-27 12:51
PROVIDERS: ADMIT Orthopaedic Surgery; ATTEND Orthopaedic Surgery
PROC: 0QPB04Z Removal of Internal Fixation Device from Right Lower Femur, Open Approach (ICD-10-PCS; principal; 2025-08-23)
PROC: 0QS806Z Reposition Right Femoral Shaft with Intramedullary Internal Fixation Device, Open Approach (ICD-10-PCS; 2025-08-23)
PROC: 0QR807Z Replacement of Right Femoral Shaft with Autologous Tissue Substitute, Open Approach (ICD-10-PCS; 2025-08-23)
PROC: 0QB20ZZ Excision of Right Pelvic Bone, Open Approach (ICD-10-PCS; 2025-08-23)
PROC: 3E0U33Z Introduction of Anti-inflammatory into Joints, Percutaneous Approach (ICD-10-PCS; 2025-08-23)
PROC: 0S9D3ZX Drainage of Left Knee Joint, Percutaneous Approach, Diagnostic (ICD-10-PCS; 2025-08-23)
PROC: 027034Z Dilation of Coronary Artery, One Artery with Drug-eluting Intraluminal Device, Percutaneous Approach (ICD-10-PCS; 2025-08-24)
PROC: 4A023N7 Measurement of Cardiac Sampling and Pressure, Left Heart, Percutaneous Approach (ICD-10-PCS; 2025-08-24)
PROC: 3E03329 Introduction of Other Anti-infective into Peripheral Vein, Percutaneous Approach (ICD-10-PCS; 2025-08-24)
PROC: 30233N1 Transfusion of Nonautologous Red Blood Cells into Peripheral Vein, Percutaneous Approach (ICD-10-PCS; 2025-08-25)
DX: S72.3 Fracture of shaft of femur (principal); I21.09 ST elevation (STEMI) myocardial infarction involving other coronary artery of anterior wall; I47.19 Other supraventricular tachycardia; G47.33 Obstructive sleep apnea (adult) (pediatric); E66.9 Obesity, unspecified; M17.32 Unilateral post-traumatic osteoarthritis, left knee; E78.5 Hyperlipidemia, unspecified; I25.5 Ischemic cardiomyopathy; S70.11XA Contusion of right thigh, initial encounter; D64.9 Anemia, unspecified; Z98.890 Other specified postprocedural states; Z87.442 Personal history of urinary calculi; Z87.891 Personal history of nicotine dependence
CPT/HCPCS: 36415; 36430; 75635; 80048; 80053; 80061; 83036; 83605; 83735; 84100; 84145; 84443; 84484; 85014; 85018; 85025; 85060; 85347; 85610; 85730; 86141; 86850; 86900; 86901; 87070; 87205; 89051; 92941; 93005; 93010; 93306; 93458; C1713; C1725; C1757; C1769; C1874; C1887; C1889; C1894; C9606; J0153; J0165; J0169; J0282; J0461; J0665; J1010; J1100; J1171; J1644; J1650; J1885; J2003; J2250; J2270; J2272; J2405; J2470; J2550; J2704; J3010; J7070; J7120; P9016; Q9967

== ENCOUNTER 2025-09-10 15:55 | Observation (INO) | payer BC ==
[~2025-09-10 15:55] MED LIST: Iopamidol-370 76% 500 ML MDV (1 ML CHARGE) ONE
[2025-09-10 16:18] LABS: #Basophils 0.10 10x3/uL (0.0-0.2); #Eosinophils 0.26 10x3/uL (0.0-0.7); #Monocytes 0.54 10x3/uL (0.11-0.59); #Neutrophils 4.75 10x3/uL (1.40-6.50); %Basophils 1.3 % (0.0-1.0); %Eosinophils 3.3 % (0.0-10.0); %Lymphocytes 27.1 % (21.0-51.0); %Monocytes 6.9 % (0.0-10.0); %Neutrophils 61.0 % (42.0-75.0); Hematocrit 43.5 % (42.0-52.0); Hemoglobin 13.4 g/dL (14.0-18.0); Mean Corpuscular Hemoglobin 27.9 pg (27.0-31.0); Mean Corpuscular Volume 90.6 fL (78.0-98.0); Platelet Count 531 10x3/uL (130-400); Red Blood Cell (RBC) Count 4.80 mill/uL (4.70-6.10); White Blood Cell (WBC) Count 7.79 10x3/uL (4.8-10.8)
[2025-09-10 16:40] LABS: ALT (SGPT) 19 U/L (Less than 45); AST (SGOT) 23 U/L (11-34); Albumin 4.5 g/dL (3.1-4.5); Alkaline Phosphatase 163 U/L (40-110); Anion Gap 13 mmol/L (10-20); BUN (Urea Nitrogen) 16 mg/dL (8.9-20.6); Bilirubin, Total 0.7 mg/dL (0.3-1.2); Calc. Creatinine Clearance 0 mL/min (70-130); Calcium 9.1 mg/dL (7.8-10.44); Carbon Dioxide 25 mmol/L (22-29); Chloride 105 mmol/L (98-107); Globulin 3.7 g/dL (2.4-3.5); Glucose 89 mg/dL (70-105); Potassium 3.7 mmol/L (3.5-5.1); Sodium 139 mmol/L (136-145)
[2025-09-10] MEDS ORDERED: Aspirin Chewable 81 MG TAB ONE (19:43)
[2025-09-10] MEDS ORDERED: Nitroglycerin 0.4 MG TAB (25 Tab Bottle) SL PRN (20:18)
[2025-09-10] MEDS ORDERED: Acetaminophen 325 MG TAB PO PRN (20:18)
[2025-09-10] MEDS ORDERED: Ondansetron PF 4 MG/2 ML Vial IVP PRN (20:18)
[2025-09-10 22:05] VITALS: BMI 27.1
[2025-09-10] MEDS: Pantoprazole 40 MG DR.TAB PO SCH (23:08)
[2025-09-11] MEDS: HYDROcodone/Acetaminophen 10/325 mg Tablet PO PRN (03:00)
[2025-09-11 04:54] LABS: #Basophils 0.11 10x3/uL (0.0-0.2); #Eosinophils 0.28 10x3/uL (0.0-0.7); #Monocytes 0.77 10x3/uL (0.11-0.59); #Neutrophils 6.26 10x3/uL (1.40-6.50); %Basophils 1.1 % (0.0-1.0); %Eosinophils 2.9 % (0.0-10.0); %Lymphocytes 24.0 % (21.0-51.0); %Monocytes 7.8 % (0.0-10.0); %Neutrophils 63.8 % (42.0-75.0); Hematocrit 39.9 % (42.0-52.0); Hemoglobin 12.2 g/dL (14.0-18.0); Mean Corpuscular Hemoglobin 27.9 pg (27.0-31.0); Mean Corpuscular Volume 91.3 fL (78.0-98.0); Platelet Count 452 10x3/uL (130-400); Red Blood Cell (RBC) Count 4.37 mill/uL (4.70-6.10); White Blood Cell (WBC) Count 9.81 10x3/uL (4.8-10.8)
[2025-09-11 05:17] LABS: Anion Gap 15 mmol/L (10-20); BUN (Urea Nitrogen) 16 mg/dL (8.9-20.6); Calc. Creatinine Clearance 158 mL/min (70-130); Calcium 8.7 mg/dL (7.8-10.44); Carbon Dioxide 22 mmol/L (22-29); Chloride 106 mmol/L (98-107); Glucose 100 mg/dL (70-105); Potassium 3.9 mmol/L (3.5-5.1); Sodium 139 mmol/L (136-145)
[2025-09-11] MEDS: Aspirin 81 mg Enteric Coated Tablet PO SCH (08:52)
[2025-09-11] MEDS: Lisinopril 2.5 MG TAB PO SCH (08:52)
[2025-09-11] MEDS: Dapagliflozin Propanediol 10 MG TAB PO SCH (08:52)
[2025-09-11 12:28] VITALS: TEMP 98.3
[2025-09-11 16:25] VITALS: BP 110/64
== END 2025-09-11 18:10 | disposition home or self-care (01) ==
LOC: ERS 15:55 → OBS 20:18
PROVIDERS: ADMIT Internal Medicine; ATTEND Family Medicine
DX: R07.9 Chest pain, unspecified (principal); I25.10 Atherosclerotic heart disease of native coronary artery without angina pectoris; I25.5 Ischemic cardiomyopathy; I11.0 Hypertensive heart disease with heart failure; I50.40 Unspecified combined systolic (congestive) and diastolic (congestive) heart failure; E78.5 Hyperlipidemia, unspecified; D64.9 Anemia, unspecified; Z98.890 Other specified postprocedural states; Z79.82 Long term (current) use of aspirin; Z87.891 Personal history of nicotine dependence; Z79.899 Other long term (current) drug therapy
CPT/HCPCS: 36415; 71045; 71275; 80048; 80053; 83880; 84484; 85025; 93005; 94760; 96374; G0378; J2272; Q9967

== ENCOUNTER 2025-09-26 12:51 | Observation (INO) | payer BC ==
[2025-09-26] MEDS ORDERED: Aspirin Chewable 81 MG TAB ONE (13:16)
[2025-09-26 13:29] LABS: #Basophils 0.06 10x3/uL (0.0-0.2); #Eosinophils 0.18 10x3/uL (0.0-0.7); #Monocytes 0.49 10x3/uL (0.11-0.59); #Neutrophils 5.41 10x3/uL (1.40-6.50); %Basophils 0.8 % (0.0-1.0); %Eosinophils 2.3 % (0.0-10.0); %Lymphocytes 21.4 % (21.0-51.0); %Monocytes 6.3 % (0.0-10.0); %Neutrophils 68.9 % (42.0-75.0); Hematocrit 46.2 % (42.0-52.0); Hemoglobin 15.3 g/dL (14.0-18.0); Mean Corpuscular Hemoglobin 28.5 pg (27.0-31.0); Mean Corpuscular Volume 86.0 fL (78.0-98.0); Platelet Count 250 10x3/uL (130-400); Red Blood Cell (RBC) Count 5.37 mill/uL (4.70-6.10); White Blood Cell (WBC) Count 7.84 10x3/uL (4.8-10.8)
[2025-09-26 13:51] LABS: ALT (SGPT) 30 U/L (Less than 45); AST (SGOT) 33 U/L (11-34); Albumin 4.7 g/dL (3.1-4.5); Alkaline Phosphatase 132 U/L (40-110); Anion Gap 12 mmol/L (10-20); BUN (Urea Nitrogen) 12 mg/dL (8.9-20.6); Bilirubin, Total 0.8 mg/dL (0.3-1.2); Calc. Creatinine Clearance 0 mL/min (70-130); Calcium 9.5 mg/dL (7.8-10.44); Carbon Dioxide 22 mmol/L (22-29); Chloride 104 mmol/L (98-107); Globulin 2.8 g/dL (2.4-3.5); Glucose 124 mg/dL (70-105); Magnesium 2.3 mg/dL (1.6-2.6); Potassium 3.9 mmol/L (3.5-5.1); Sodium 134 mmol/L (136-145)
[2025-09-26] MEDS ORDERED: HYDROcodone/Acetaminophen 5/325 mg Tablet ONE (16:21)
[2025-09-26] MEDS ORDERED: Acetaminophen 325 MG TAB PO PRN (18:04)
[2025-09-26] MEDS ORDERED: Ondansetron PF 4 MG/2 ML Vial IVP PRN (18:07)
[2025-09-26] MEDS ORDERED: niCARdipine 25 MG/10 ML SDV ONE (19:50)
[2025-09-26 21:01] VITALS: BMI 28.6
[2025-09-26] MEDS ORDERED: HYDROcodone/Acetaminophen 5/325 mg Tablet PO PRN (23:43)
[2025-09-27] MEDS: HYDROcodone/Acetaminophen 10/325 mg Tablet PO PRN (00:02)
[2025-09-27 03:40] LABS: #Basophils 0.06 10x3/uL (0.0-0.2); #Eosinophils 0.23 10x3/uL (0.0-0.7); #Monocytes 0.61 10x3/uL (0.11-0.59); #Neutrophils 4.45 10x3/uL (1.40-6.50); %Basophils 0.8 % (0.0-1.0); %Eosinophils 3.1 % (0.0-10.0); %Lymphocytes 26.9 % (21.0-51.0); %Monocytes 8.3 % (0.0-10.0); %Neutrophils 60.6 % (42.0-75.0); Hematocrit 43.1 % (42.0-52.0); Hemoglobin 13.9 g/dL (14.0-18.0); Mean Corpuscular Hemoglobin 28.1 pg (27.0-31.0); Mean Corpuscular Volume 87.2 fL (78.0-98.0); Platelet Count 257 10x3/uL (130-400); Red Blood Cell (RBC) Count 4.94 mill/uL (4.70-6.10); White Blood Cell (WBC) Count 7.35 10x3/uL (4.8-10.8)
[2025-09-27 04:03] LABS: Anion Gap 13 mmol/L (10-20); BUN (Urea Nitrogen) 15 mg/dL (8.9-20.6); Calc. Creatinine Clearance 162 mL/min (70-130); Calcium 9.1 mg/dL (7.8-10.44); Carbon Dioxide 25 mmol/L (22-29); Chloride 106 mmol/L (98-107); Glucose 99 mg/dL (70-105); Potassium 3.9 mmol/L (3.5-5.1); Sodium 140 mmol/L (136-145)
[2025-09-27] MEDS: Pantoprazole 40 MG DR.TAB PO SCH (08:29)
[2025-09-27] MEDS: Dapagliflozin Propanediol 10 MG TAB PO SCH (08:30)
[2025-09-27] MEDS: Lisinopril 2.5 MG TAB PO SCH (08:30)
[2025-09-27] MEDS: Aspirin 81 mg Enteric Coated Tablet PO SCH (08:30)
[2025-09-27 16:00] VITALS: BP 104/58; TEMP 98.3
== END 2025-09-27 18:48 | disposition home or self-care (01) ==
LOC: ERS 12:51 → 2SE 17:34
PROVIDERS: ADMIT Internal Medicine; ATTEND Hospitalist
DX: R07.89 Other chest pain (principal); M79.604 Pain in right leg; I25.10 Atherosclerotic heart disease of native coronary artery without angina pectoris; I25.2 Old myocardial infarction; I95.9 Hypotension, unspecified; I50.40 Unspecified combined systolic (congestive) and diastolic (congestive) heart failure; E78.5 Hyperlipidemia, unspecified; Z87.891 Personal history of nicotine dependence; Z79.82 Long term (current) use of aspirin; Z79.02 Long term (current) use of antithrombotics/antiplatelets; Z79.899 Other long term (current) drug therapy
CPT/HCPCS: 36415; 71045; 71275; 80048; 80053; 83735; 83880; 84484; 85025; 85379; 93005; G0378